=== PATIENT | female | born 1960 | race Caucasian/White ===

== ENCOUNTER → 2017-11-16 | Outpatient (CLI) | payer OTHER ==
[~2017-11-16] MED LIST: ALBUTEROL2.5 MG/0.5 INH; AMITRIPTYLINE H75 MG PO; DULCOLAX100 MG; FLEXERIL10 MG PO; MOTRIN800 MG PO; NKHM; OMNICEF300 MG PO; PRILOSEC40 MG; SIMVASTATIN10 MG PO; VENLAFAXINE HYD25 MG PO; Vicodin 5/500 505 MG PO
== END | disposition home or self-care (01) ==
LOC: MAMMO 13:40
DX: Z12.31 Encounter for screening mammogram for malignant neoplasm of breast (principal)

== ENCOUNTER → 2018-02-23 | Outpatient (CLI) | payer OTHER ==
[2018-02-23 09:21] LABS: BASO # 0.1 10*3/uL (0.0-0.1); BASO % 1.1 % (0.0-1.0); EOS # 0.3 10*3/uL (0.0-0.4); EOS % 7.1 % (1.0-4.0); HEMATOCRIT 45.4 % (37.0-47.0); HEMOGLOBIN 15.5 g/dl (12.0-16.0); LYMPH # 1.6 10*3/uL (1.3-4.4); LYMPH % 36.7 % (27.0-41.0); MEAN CELL VOLUME 89.9 fl (81.0-99.0); MEAN CORPUSCULAR HGB 30.7 pg (27.0-31.0); MEAN CORPUSCULAR HGB CONC 34.1 g/dl (33.0-37.0); MONO # 0.5 10*3/uL (0.1-1.0); MONO % 11.2 % (3.0-9.0); NEUT # 1.9 10*3/uL (2.3-7.9); NEUT % 43.7 % (47.0-73.0); PLATELET COUNT AUTOMATED 249 10*3/uL (130-400); RED BLOOD COUNT 5.05 10*6/uL (4.10-5.10); RED CELL DISTRI WIDTH 12.3 % (0-14.5); WHITE BLOOD COUNT 4.4 10*3/uL (4.8-10.8)
[2018-02-23 09:48] LABS: ALKALINE PHOSPHATASE 84 U/L (45-117); BUN 12 mg/dl (7-24); CHLORIDE 105 mmol/L (98-107); CHOLESTEROL 181 mg/dL (<200); CREATININE 0.86 mg/dL (0.55-1.02); HDL CHOLESTEROL 47 mg/dl (40-60); LDL CHOLESTEROL 99 mg/dL (9-159); POTASSIUM 3.8 mmol/L (3.5-5.1); SGOT/AST 21 IU/L (3-35); SGPT/ALT 27 U/L (12-78); SODIUM 139 mmol/L (136-145); TOTAL PROTEIN 7.5 gm/dL (6.4-8.2); TRIGLYCERIDES 175 mg/dl (<150); VLDL CHOLESTEROL 35 mg/dL (6-40)
== END | disposition home or self-care (01) ==
LOC: LAB 08:56
PROVIDERS: Nurse Practitioner Family
DX: E78.4 Other hyperlipidemia (principal); F41.9 Anxiety disorder, unspecified; R53.83 Other fatigue

== ENCOUNTER → 2018-03-01 | Outpatient (CLI) | payer OTHER | END | disposition home or self-care (01) | LOC: RAD 14:17 | DX: M79.644 Pain in right finger(s) (principal) ==

== ENCOUNTER → 2018-05-23 | Outpatient (CLI) | payer OTHER | END | disposition home or self-care (01) | LOC: RAD 15:03 | DX: M47.892 Other spondylosis, cervical region (principal); M54.12 Radiculopathy, cervical region; M25.78 Osteophyte, vertebrae; R20.0 Anesthesia of skin ==